=== PATIENT | male | born 1965 | race Hispanic/Latino ===

== ENCOUNTER 2018-06-18 23:00 | Emergency (ER) | payer SELFPAY ==
[2018-06-18 23:01] VITALS: BMI 23.7
[2018-06-18 23:08] VITALS: RESP 20
[2018-06-18] MEDS ORDERED: Sodium Chloride 0.9% 1,000 ML IV STA (23:12)
[2018-06-18] MEDS ORDERED: Morphine 4 MG/ML VIAL ONE (23:20)
[2018-06-18] MEDS ORDERED: Sodium Chloride 0.9% 1,000 ML ONE (23:20)
[2018-06-18 23:30] LABS: BASO # 0.1 K/uL (0.0-0.2); BASO % 0.8 % (0.0-2.0); EOS # 0.2 K/uL (0.0-0.7); EOS % 2.1 % (0.0-4.0); HEMOGLOBIN 14.1 g/dL (12.0-18.0); LYMPH # 2.5 K/uL (1.0-4.3); LYMPH % 22.4 % (20.0-40.0); MEAN CORPUSCULAR HEMOGLOBIN 27.9 pg (27.0-31.0); MEAN CORPUSCULAR HGB CONC 33.2 g/dL (33.0-37.0); MEAN PLATELET VOLUME 8.9 fL (7.2-11.7); MONO # 0.6 K/uL (0.0-0.8); MONO % 5.8 % (0.0-10.0); NEUT # 7.7 K/uL (1.8-7.0); NEUT % 68.9 % (50.0-75.0); RBC 5.04 Mil/uL (4.40-5.90); RED CELL DISTRIBUTION WIDTH 13.6 % (11.5-14.5); WHITE BLOOD COUNT 11.2 K/uL (4.8-10.8)
[2018-06-18 23:40] LABS: ALB/GLOB RATIO 1.4 (1.0-2.1); ALBUMIN 4.2 g/dL (3.5-5.0); ALT/SGPT 68 U/L (21-72); AST/SGOT 40 U/L (17-59); BLOOD UREA NITROGEN 12 mg/dL (9-20); CALCIUM 9.8 mg/dl (8.6-10.4); GFR AFRICAN-AMERICAN > 60; GFR NON-AFRICAN AMERICAN > 60
--- NOTE | 2018-06-19 00:09 | C.PDOC ---
History Of Present Illness 53 y/o M c PMHx kidney stones p/w bilateral flank pain x 2 hours, took ibuprofen prior to arrival. Pain is severe, constant. Pain is radiating from flank to groin. Denies fever, chills, nausea, vomiting, diarrhea, dysuria, rash. Urologist Jose Time Seen by Provider: 06/18/18 23:09 Chief Complaint (Nursing): Male Genitourinary Past Medical History Vital Signs: Last Vital Signs Temp 98.3 F 06/18/18 23:04 Pulse 79 06/18/18 23:04 Resp 20 06/18/18 23:04 BP 124/74 06/18/18 23:04 Pulse Ox 95 06/19/18 00:20 - Medical History PMH: Kidney Stones (6mm stone in distal R ureter ) Surgical History: Appendectomy Family History: States: No Known Family Hx - Social History Hx Alcohol Use: No Hx Substance Use: No - Immunization History Hx Tetanus Toxoid Vaccination: No Hx Influenza Vaccination: No Hx Pneumococcal Vaccination: No Review Of Systems Except As Marked, All Systems Reviewed And Found Negative. Constitutional: Negative for: Fever Cardiovascular: Negative for: Chest Pain Physical Exam - Physical Exam Additional Physical Exam Comments: Gen: NAD Head: NC/AT Eyes: PERRL ENT: MMM Neck: Supple Chest: No tenderness CV: Regular rate Lungs: CTA b/l Abd: Soft, NT Back: Bilatera CVA tenderness Extremities: No edema Skin: No rash Neuro: Alert, no focal deficit ED Course And Treatment - Laboratory Results Result Diagrams: 06/18/18 23:25 06/18/18 23:25 O2 Sat by Pulse Oximetry: 95 Medical Decision Making Medical Decision Making: Morphine for pain. Disposition - Disposition Referrals: Rod Garcia MD [Staff Provider] - Disposition: HOME/ ROUTINE Disposition Time: 00:28 Condition: STABLE Additional Instructions: IMPRESSION: 1. 2 mm passed stone in the bladder lumen. Nonobstructing stones in both kidneys. 2. Small bilateral pleural effusions. 3. Fecal stasis. Feculent material in small bowel. It may be due to hypomotility Instructions: Kidney Stones in Adults Forms: [place] ([facility]) - Clinical Impression Clinical Impression: Renal colic
[2018-06-19 00:21] LABS: URINE BILIRUBIN NEGATIVE (NEGATIVE); URINE BLOOD NEGATIVE (NEGATIVE); URINE CLARITY Clear (Clear); URINE COLOR Straw (YELLOW); URINE GLUCOSE (UA) NORMAL (Normal); URINE LEUKOCYTE ESTERASE NEG Leu/uL (Negative); URINE PROTEIN NEGATIVE (NEGATIVE); URINE UROBILINOGEN NORMAL mg/dL (0.2-1.0)
[2018-06-19 00:47] VITALS: BP 119/66; PULSE 51; TEMP 98.2; O2SAT 98
--- NOTE | 2018-06-19 10:13 | CT ---
Date of service: 06/18/2018 PROCEDURE: CT Abdomen and Pelvis without intravenous contrast HISTORY: flank pain COMPARISON: None available. TECHNIQUE: Multiple contiguous axial images were performed through the abdomen and pelvis without the use of intravenous contrast. Subsequently, sagittal and coronal reformatted images were obtained. Radiation dose: Total exam DLP = 753 mGy-cm. This CT exam was performed using one or more of the following dose reduction techniques: Automated exposure control, adjustment of the mA and/or kV according to patient size, and/or use of iterative reconstruction technique. FINDINGS: LOWER THORAX: Small bilateral pleural effusions with dependent atelectasis at the lung bases. LIVER: Scattered hepatic hypodensities, most of which are too small characterize. The more prominent lesions seen within left hepatic lobe on series 3, image 49 measure 1.3 centimeters demonstrating a Hounsfield unit attenuation of 11. GALLBLADDER AND BILE DUCTS: Unremarkable. PANCREAS: Unremarkable. No gross lesion or ductal dilatation. SPLEEN: Unremarkable. ADRENALS: Unremarkable. No mass. KIDNEYS AND URETERS: Calculi noted in both kidneys; for example, in the right kidney a midpole calculus measures up to 6 millimeters and in the left kidney a midpole calculus measures up to 8 millimeters. 5 millimeter calcification near the distal right ureter best seen on series 3, image 182 may represent a calcified phlebolith. Clinical correlation. VASCULATURE: Unremarkable. No aortic aneurysm. BOWEL: Fecal retention in the colon and distal small bowel. APPENDIX: Suboptimally visualized. PERITONEUM: Unremarkable. No free fluid. No free air. LYMPH NODES: Unremarkable. No enlarged lymph nodes. BLADDER: 3 millimeter calculus noted within the posterior urinary bladder suggestive for passed calculus. REPRODUCTIVE: Prominent prostate with central calcifications. BONES: Grade 1 retrolisthesis of L4 on L5 and L5 on S1. Small disc calcification at T9-10. OTHER FINDINGS: None. IMPRESSION: 3 millimeter passed calculus in the posterior urinary bladder. Calculi noted in both kidneys; for example, in the right kidney a midpole calculus measures up to 6 millimeters and in the left kidney a midpole calculus measures up to 8 millimeters. 5 millimeter calcification near the distal right ureter; best seen on series 3, image 182 may represent a calcified phlebolith. Clinical correlation. Prominent prostate with associated calcifications. Clinical correlation. Small bilateral pleural effusions. Fecal retention in the colon and distal small bowel. Clinical correlation. These findings were preliminarily reported at 11:53 p.m. on 06/18/[address] Tamanna Fisher from [facility].
== END 2018-06-19 01:37 | disposition home or self-care (01) ==
LOC: C.ER 23:00
DX: N23 Unspecified renal colic (principal)
CPT/HCPCS: 74176; 80053; 81001; 85025; 87086; 96361; 96374; 99285; J2270; J7030